=== PATIENT | male | born 1950 | race Caucasian/White ===

== ENCOUNTER 2016-10-06 18:01 | Observation (INO) | payer MEDICARE, MEDICAID ==
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
[2016-10-06 18:28] VITALS: BMI 33.0
[2016-10-06 21:21] LABS: BASO % 0.3 % (0.0-2.0); EOS % 0.4 % (0.0-4.0); HEMATOCRIT 41.3 % (35.0-51.0); LYMPH # 1.4 K/uL (1.0-4.3); LYMPH % 14.1 % (20.0-40.0); MEAN CORPUSCULAR HEMOGLOBIN 31.7 pg (27.0-31.0); MEAN CORPUSCULAR HGB CONC 34.8 g/dL (33.0-37.0); MEAN PLATELET VOLUME 7.8 fl (7.2-11.7); MONO # 0.5 K/uL (0.0-0.8); MONO % 5.6 % (0.0-10.0); NEUT # 7.7 K/uL (1.8-7.0); NEUT % 79.6 % (50.0-75.0); NRBC % 0.1 % (0.0-0.0); WHITE BLOOD COUNT 9.6 K/uL (4.8-10.8)
[2016-10-06 21:51] LABS: ALB/GLOB RATIO 1.3 (1.0-2.1); ALCOHOL SERUM 189 mg/dl (0-10); ALKALINE PHOSPHATASE 79 U/L (38-126); ALT/SGPT 24 U/L (21-72); AST/SGOT 34 U/L (17-59); BILIRUBIN,TOTAL 0.3 mg/dl (0.2-1.3); BLOOD UREA NITROGEN 13 mg/dl (9-20); CALCIUM 9.4 mg/dL (8.4-10.2); CARBON DIOXIDE 24 mmol/L (22-30); CHLORIDE 106 mmol/L (98-107); GFR AFRICAN-AMERICAN > 60; GLUCOSE,RANDOM 102 mg/dL (75-110); POTASSIUM 3.6 MMOL/L (3.6-5.0); SODIUM 148 mmol/l (132-148); TOTAL PROTEIN 8.1 G/DL (6.3-8.2)
[2016-10-06 22:44] VITALS: BP 148/92; PULSE 88; RESP 14; TEMP 98.4; O2SAT 96
== END 2016-10-06 22:06 | disposition home or self-care (01) ==
LOC: H.ER 18:01 → EDBD 18:01 → H.EROBSV 21:29 → MERGE 21:29
PROVIDERS: ADMIT Emergency Medicine; ATTEND Emergency Medicine
DX: F10.129 Alcohol abuse with intoxication, unspecified (principal); Y90.6 Blood alcohol level of 120-199 mg/100 ml
CPT/HCPCS: 80053; 85025; 96372; 99281; G0378; G0480; J2060

== ENCOUNTER 2017-08-14 17:29 | Emergency (ER) | payer MEDICARE ==
[2017-08-14 17:32] VITALS: BP 171/81; PULSE 118; RESP 20; TEMP 98; O2SAT 98
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
[2017-08-14 21:01] LABS: HEPATITIS B SURFACE AG Negative (NEGATIVE)
[2017-08-14 21:07] LABS: HEPATITIS A IGM NEGATIVE (NEGATIVE); HEPATITIS B CORE AB NEGATIVE (NEGATIVE)
[2017-08-14 21:18] LABS: HEPATITIS C ANTIBODY NEGATIVE (NEGATIVE)
--- NOTE | 2017-08-15 02:13 | ED PDOC ---
- ECG O2 Sat by Pulse Oximetry: 98 - Progress ED Course And Treament: Case endorsed to copy writer from [place] GARCIA pending sobriety/re-eval 21:30 Patient awake, cursing at staff. 22:30 Patient sleeping; no distress 23:30 Patient awake, alert, oriented x3. Ambulating steady gait. Stable for discharge Disposition - Clinical Impression Clinical Impression: Alcohol intoxication - POA Present On Arrival: None - Disposition Disposition: Routine/Home Disposition Time: 02:13 Condition: STABLE Instructions: Alcohol Intoxication (ED) Forms: [facility] (Dominican)
== END 2017-08-14 23:30 | disposition home or self-care (01) ==
LOC: MERGE 17:29 → H.ER 17:29 → EDBD 17:29 → H.ER 23:30
DX: F10.129 Alcohol abuse with intoxication, unspecified (principal)
CPT/HCPCS: 80074; 87390; 96372; 99283; J2060

== ENCOUNTER 2018-09-18 08:45 | Emergency (ER) | payer MEDICARE, MEDICAID ==
--- NOTE | 2018-09-18 09:17 | ED PDOC ---
HPI: Psych/Substance Abuse Time Seen by Provider: 09/18/18 08:58 Chief Complaint (Nursing): Alcohol Ingestion Chief Complaint (Provider): Alcohol Ingestion ED Caveat: Uncooperative History Per: Patient History/Exam Limitations: other (refusing to answer questions) Additional Complaint(s): Supa Schwartz is a 67 year old male with a past medical history of hypertension and anxiety, who presents to the emergency department by ambulance for intoxication. Patient is refusing to answer any questions, stating "I plead the fifth." PMD: No provider Past Medical History Reviewed: Historical Data, Nursing Documentation, Vital Signs Vital Signs: Last Vital Signs Temp 97.7 F 09/18/18 08:49 Pulse 78 09/18/18 08:49 Resp 16 09/18/18 08:49 BP 103/76 09/18/18 08:49 Pulse Ox 98 09/18/18 08:49 - Medical History PMH: Anxiety, Back Problems, HTN Denies: Diabetes, Hepatitis, HIV, Seizures, Sexually Transmitted Disease - Surgical History Surgical History: No Surg Hx - Family History Family History: States: Unknown Family Hx - Home Medications Home Medications: Ambulatory Orders Medication Instructions Recorded Albuterol Sulfate [Ventolin Hfa] 0.09 mg IH PRN 09/20/14 Alprazolam 0.5 mg PO BID 09/20/14 Cyclobenzaprine HCl [Flexeril] 10 mg PO Q8 #20 tab 09/20/14 Ergocalciferol [Calciferol] 50,000 iu PO 09/20/14 Losartan Potassium 50 mg PO DAILY 09/20/14 Omeprazole 40 mg PO DAILY 09/20/14 Paroxetine HCl [Paroxetine] 20 mg PO DAILY 09/20/14 Simvastatin 40 mg PO HS 09/20/14 Tramadol Hydrochloride [Tramadol] 50 mg PO TID PRN 09/20/14 - Allergies Allergies/Adverse Reactions: Allergies Allergy/AdvReac Type Severity Reaction Status Date / Time No Known Allergies Allergy Verified 05/04/18 16:25 Review of Systems ROS Statement: Except As Marked, All Systems Reviewed And Found Negative Constitutional: Positive for: Other (intoxication) Physical Exam - Reviewed Nursing Documentation Reviewed: Yes Vital Signs Reviewed: Yes - Physical Exam Appears: Positive for: Non-toxic, No Acute Distress Head Exam: Positive for: ATRAUMATIC, NORMOCEPHALIC ENT: Positive for: Other (alcohol on breath ) - ECG O2 Sat by Pulse Oximetry: 98 (RA) Pulse Ox Interpretation: Normal Medical Decision Making Medical Decision Making: Time: 910 Impression: intoxication Plan: --Alcohol Serum --Accucheck (Glucose, Blood) 11:45 Pt AAOX3, steady gait. Scribe Attestation: Documented by Maikol Ramirez, acting as a scribe for Shey Henning MD. Provider Scribe Attestation: All medical record entries made by the Scribe were at my direction and personally dictated by me. I have reviewed the chart and agree that the record accurately reflects my personal performance of the history, physical exam, medical decision making, and the department course for this patient. I have also personally directed, reviewed, and agree with the discharge instructions and disposition. Disposition - Clinical Impression Clinical Impression: Alcohol abuse with intoxication - Disposition Referrals: Alcoholics Anonymous [Outside] Disposition: Routine/Home Disposition Time: 11:46 Condition: IMPROVED Instructions: Alcohol Use - When Is Drinking a Problem? Forms: [employer] (Setswana)
[2018-09-18 12:34] VITALS: BP 102/68; PULSE 72; RESP 18; TEMP 98; O2SAT 99
== END 2018-09-18 12:30 | disposition home or self-care (01) ==
LOC: H.ER 08:45
DX: F10.129 Alcohol abuse with intoxication, unspecified (principal); Y90.6 Blood alcohol level of 120-199 mg/100 ml; I10 Essential (primary) hypertension
CPT/HCPCS: 82948; 99282; G0480

== ENCOUNTER 2018-11-24 14:09 | Emergency (ER) | payer MEDICARE, MEDICAID ==
[2018-11-24 14:19] VITALS: BP 125/69; PULSE 76; RESP 18; TEMP 98.2; O2SAT 99
--- NOTE | 2018-11-24 15:16 | ED PDOC ---
Lower Extremity Pain/Injury Time Seen by Provider: 11/24/18 14:19 Chief Complaint (Nursing): Lower Extremity Problem/Injury Chief Complaint (Provider): Lower Extremity Problem/Injury History Per: Patient History/Exam Limitations: no limitations Onset/Duration Of Symptoms: Persistent Current Symptoms Are (Timing): Still Present Additional Complaint(s): 67 year old male with a history of HTN, anxiety and back problems presents to the ED for evaluation of right knee and right hip pain. States 20-30 years ago he was informed by a doctor that he has no cartilage" in both knees. Today, he felt his right knee give out, but did not fall. Patient also reports 4-5 months of atraumatic right hip pain. He denies abdominal pain, blunt trauma, fever, chills, weakness, numbness and tingling. PMD: Dr. Durga Mills Past Medical History Reviewed: Historical Data, Nursing Documentation, Vital Signs Vital Signs: Last Vital Signs Temp 98.2 F 11/24/18 14:16 Pulse 76 11/24/18 14:16 Resp 18 11/24/18 14:16 BP 125/69 11/24/18 14:16 Pulse Ox 99 11/24/18 14:16 Primary Care Provider: Durga Mills - Medical History PMH: Anxiety, Back Problems, HTN Denies: Diabetes, Hepatitis, HIV, Seizures, Sexually Transmitted Disease - Surgical History Surgical History: No Surg Hx - Family History Family History: States: Unknown Family Hx - Home Medications Home Medications: Ambulatory Orders Medication Instructions Recorded Albuterol Sulfate [Ventolin Hfa] 0.09 mg IH PRN 09/20/14 Alprazolam 0.5 mg PO BID 09/20/14 Cyclobenzaprine HCl [Flexeril] 10 mg PO Q8 #20 tab 09/20/14 Ergocalciferol [Calciferol] 50,000 iu PO 09/20/14 Losartan Potassium 50 mg PO DAILY 09/20/14 Omeprazole 40 mg PO DAILY 09/20/14 Paroxetine HCl [Paroxetine] 20 mg PO DAILY 09/20/14 Simvastatin 40 mg PO HS 09/20/14 Tramadol Hydrochloride [Tramadol] 50 mg PO TID PRN 09/20/14 Meloxicam [Mobic] 1 - 2 tab PO DAILY PRN #10 tab 11/24/18 - Allergies Allergies/Adverse Reactions: Allergies Allergy/AdvReac Type Severity Reaction Status Date / Time No Known Allergies Allergy Verified 05/04/18 16:25 Review of Systems ROS Statement: Except As Marked, All Systems Reviewed And Found Negative Musculoskeletal: Positive for: Leg Pain (right knee pain), Other (right hip pain) Physical Exam - Reviewed Nursing Documentation Reviewed: Yes Vital Signs Reviewed: Yes - Physical Exam Appears: Positive for: No Acute Distress Head Exam: Positive for: ATRAUMATIC, NORMAL INSPECTION, NORMOCEPHALIC Skin: Positive for: Normal Color, Warm, Dry Eye Exam: Positive for: EOMI, Normal appearance, PERRL Neck: Positive for: Normal, Painless ROM, Supple Cardiovascular/Chest: Positive for: Regular Rate, Rhythm. Negative for: Murmur Respiratory: Positive for: Normal Breath Sounds. Negative for: Respiratory Distress Gastrointestinal/Abdominal: Positive for: Normal Exam, Soft. Negative for: Tenderness, Mass Extremity: Positive for: Normal ROM (full ROM actively at knees; bilateral lower extremities 5/5 strength), Tenderness (minimal tenderness to right lateral hip). Negative for: Deformity, Swelling (no tenderness, deformity or swelling to bilateral knees) Neurological/Psych: Positive for: Awake, Alert, Normal Tone, Symmetric/Intact Strength, Gait (steady and unassisted). Negative for: Motor/Sensory Deficits - ECG O2 Sat by Pulse Oximetry: 99 (RA) Pulse Ox Interpretation: Normal Medical Decision Making Medical Decision Makin:27 MDM: --Right knee x-ray --Right hip x-ray --Toradol 30 mg IM R knee/hip/pelvis: DJD, no fx or dislocation Pt. informed of results and advised to f/u with ortho for further evaluation but is to return to ED immediately if symptoms worsen. Scribe Attestation: Documented by Tonya Tamayo, acting as a scribe for Art E Pormentilla PA-C Provider Scribe Attestation: All medical record entries made by the Scribe were at my direction and personally dictated by me. I have reviewed the chart and agree that the record accurately reflects my personal performance of the history, physical exam, medical decision making, and the department course for this patient. I have also personally directed, reviewed, and agree with the discharge instructions and disposition. Disposition - Clinical Impression Clinical Impression: Hip pain, Knee pain - Patient ED Disposition Is Patient to be Admitted: No - Disposition Referrals: [facility] at [Outside] [facility] [place] [Outside] Ivett Feliz MD [Staff Provider] - [facility] [place] [Outside] Disposition: Routine/Home Disposition Time: 16:16 Condition: STABLE Additional Instructions: FOLLOW UP WITH ORTHO FOR FURTHER EVALUATION RETURN TO ED IMMEDIATELY FOR ANY CONCERNS OR QUESTIONS PALOMA HANDLEY, thank you for letting us take care of you today. Your provider was Rik Fay MD and you were treated for RT KNEE PAIN. The emergency medical care you received today was directed at your acute symptoms. If you were prescribed any medication, please fill it and take as directed. It may take several days for your symptoms to resolve. Return to the Emergency Department if your symptoms worsen, do not improve, or if you have any other problems. Please contact your doctor or call one of the physicians/clinics you have been referred to that are listed on the Patient Visit Information form that is included in your discharge packet. Bring any paperwork you were given at discharge with you along with any medications you are taking to your follow up visit. Our treatment cannot replace ongoing medical care by a primary care provider outside of the emergency department. Thank you for allowing the Critical access hospital team to be part of your care today. If you had an X-Ray or CT scan: A Radiologist will review the ED reading if any change in treatment is needed we will contact you. If you had a blood, urine, or wound culture: It will take several days for the results, if any change in treatment is needed we will contact you. If you had an STI test: It will take 48 hours for the results. Please call after 1 week if you have not heard back. Prescriptions: Meloxicam [Mobic] 1 - 2 tab PO DAILY PRN #10 tab PRN Reason: Pain Instructions: Chronic Knee Pain (DC), Hip Pain (DC) Print Language: MALTESE
--- NOTE | 2018-11-24 17:56 | RAD ---
Date of service: 11/24/2018 PROCEDURE: RIGHT HIP WITH PELVIS RADIOGRAPHS HISTORY: pain COMPARISON: None available. TECHNIQUE: Frontal views of the right hip and pelvis been submitted with frog-leg lateral view right hip joint. FINDINGS: No acute fracture or dislocation is appreciated throughout the pelvic ring or right hip joint. No destructive bony lesion identified. Diffuse osteopenia suggests osteoporosis. Degenerative changes are mild to moderate the bilateral hip and sacroiliac joints. Pubic symphysis appears intact as well as remaining pubic bony anatomy. IMPRESSION: Degenerative changes bilaterally as discussed above at the hip and sacroiliac joints. No acute fracture or dislocation right hip joint. No pelvic ring fracture appreciable grossly.
--- NOTE | 2018-11-24 17:57 | RAD ---
Date of service: 11/24/2018 PROCEDURE: Right Knee Radiographs. HISTORY: pain COMPARISON: None. TECHNIQUE: 2 views obtained. FINDINGS: BONES: No acute fracture or destructive bony lesion identified. JOINTS: Gross disc degenerative joint space narrowing is appreciate the medial femorotibial compartment and is moderate at the patellofemoral compartment. Osteophyte development is seen in both of these compartments compatible with advanced osteoarthritis. No subluxation or dislocation apparent. JOINT EFFUSION: Moderate suprasellar bursa effusion noted. OTHER FINDINGS: None. IMPRESSION: Advanced osteoarthritis right knee. No acute fracture, dislocation or subluxation apparent. Moderate suprasellar bursa effusion noted.
== END 2018-11-24 16:33 | disposition home or self-care (01) ==
LOC: H.ER 14:09
DX: M25.511 Pain in right shoulder (principal); M25.551 Pain in right hip
CPT/HCPCS: 73502; 73562; 96372; 99283; J1885